=== PATIENT | male | born 1985 | race Caucasian/White ===

== ENCOUNTER 2017-09-04 12:33 | Emergency (ER) | payer BC ==
--- NOTE | 2017-09-04 13:18 | EDM.PDOC ---
ED HPI GENERAL MEDICAL PROBLEM - General Chief Complaint: Laceration Stated Complaint: head laceration Time Seen by Provider: 09/04/17 12:44 Source of Information: Reports: Patient History Limitations: Reports: No Limitations - History of Present Illness INITIAL COMMENTS - FREE TEXT/NARRATIVE: bumped top of head on piece of equipment and sustained scalp laceration. No LOC. No other complaints. Tetanus UTD. No headache/vision change/nausea or other complaints suggestive of concussion. 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: Other (see below) Other Treatments ROLL OVER LOADER: paper towel to head - Related Data Allergies Allergy/AdvReac Type Severity Reaction Status Date / Time NKA Allergy none Uncoded 09/04/17 12:35 Past Medical History Hematologic History: Reports: None - Past Surgical History Musculoskeletal Surgical History: Reports: Other (See Below) Other Musculoskeletal Surgeries/Procedures:: right ankle surgery 2005 Social & Family History - Tobacco Use Smoking Status *Q: Former Smoker Used Tobacco, but Quit: Yes Month/Year Tobacco Last Used: 5 - Caffeine Use Caffeine Use: Reports: Coffee Caffeine Use Comment: daily - Recreational Drug Use Recreational Drug Use: No ED ROS GENERAL - Review of Systems Review Of Systems: ROS reveals no pertinent complaints other than HPI. ED EXAM, SKIN/RASH Exam: See Below Exam Limited By: No Limitations General Appearance: Alert, WD/WN, No Apparent Distress Eye Exam: Bilateral Eye: EOMI, PERRL Ears: Normal External Exam Nose: Normal Inspection Throat/Mouth: Normal Inspection, Normal Voice, No Airway Compromise Head: No: Facial Swelling, Facial Tenderness Neck: Supple, Non-Tender Respiratory/Chest: No Respiratory Distress Neurological: Alert, Oriented, CN II-XII Intact, Normal Cognition, Normal Gait, No Motor/Sensory Deficits Psychiatric: Normal Affect, Normal Mood Skin: Other (3.5cm head laceration scalp to right of midline on top of head) ED SKIN PROCEDURES - Laceration/Wound Repair Right [place] Head Lac/Wound length In cm: 3.5 Appearance: Subcutaneous, Linear, Clean Skin Prep: Saline Exploration/Debridement/Repair: Wound Explored, In a Bloodless Field, Explored to Base Closed with: Jackie # of Sutures: 3 Drain Placement: No Sterile Dressing Applied: Nurse Tetanus Status Addressed: Yes Complications: No Course - Vital Signs Last Recorded V/S: Last Vital Signs Temp 36.6 C 09/04/17 12:35 Pulse 68 09/04/17 12:35 Resp 16 09/04/17 12:35 BP 143/82 H 09/04/17 12:35 Pulse Ox 100 09/04/17 12:35 - Re-Assessments/Exams Free Text/Narrative Re-Assessment/Exam: 09/04/17 14:13 Laceration repaired. Precautions reviewed. Jackie out in one week. Follow up otherwise as needed. Departure - Departure Time of Disposition: 13:17 Disposition: Home, Self-Care 01 Condition: Good Clinical Impression: Laceration of scalp Qualifiers: Encounter type: initial encounter Qualified Code(s): S01.01XA - Laceration without foreign body of scalp, initial encounter - Discharge Information Instructions: Stitches, Jackie, or Adhesive Wound Closure, [id number] Forms: ED Department Discharge Additional Instructions: Follow up as needed. OK to apply topical antibiotic ointment several times a day. Tylenol or Aleve or Ibuprofen as needed for discomfort. [place]er out in one week.
== END 2017-09-04 13:50 | disposition home or self-care (01) ==
LOC: LL.ED 12:33
DX: S01.01XA Laceration without foreign body of scalp, initial encounter (principal); Z87.891 Personal history of nicotine dependence; W22.8XXA Striking against or struck by other objects, initial encounter
CPT/HCPCS: 12002; 99282

== ENCOUNTER 2020-12-07 07:58 | Emergency (ER) | payer SELFPAY ==
[2020-12-07] MEDS ORDERED: Bacitracin Oint 1 GM U/D Packet TOP ONE (08:56)
--- NOTE | 2020-12-07 08:58 | EDM.PDOC ---
ED HPI GENERAL MEDICAL PROBLEM - General Chief Complaint: Laceration Stated Complaint: left thumb laceration Time Seen by Provider: 12/07/20 08:55 Source of Information: Reports: Patient History Limitations: Reports: No Limitations - History of Present Illness INITIAL COMMENTS - FREE TEXT/NARRATIVE: Laceration left thumb from cutting bridges peppers last evening. Tried to tape it up/clean up himself but still some bleeding this morning. No other injuries/complaints. 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) - Related Data Allergies Allergy/AdvReac Type Severity Reaction Status Date / Time NKA Allergy none Uncoded 12/07/20 07:59 Past Medical History Hematologic History: Reports: None - Past Surgical History Musculoskeletal Surgical History: Reports: Other (See Below) Other Musculoskeletal Surgeries/Procedures:: right ankle surgery 2005 Social & Family History - Tobacco Use Tobacco Use Status *Q: Never Tobacco User Second Hand Smoke Exposure: No - Caffeine Use Caffeine Use: Reports: Coffee Caffeine Use Comment: daily ED ROS GENERAL - Review of Systems Review Of Systems: See Below Musculoskeletal: Denies: Joint Pain, Joint Swelling Skin: Reports: Wound Neurological: Reports: No Symptoms ED EXAM, SKIN/RASH Exam: See Below Exam Limited By: No Limitations General Appearance: Alert, WD/WN, No Apparent Distress Eye Exam: Bilateral Eye: EOMI, PERRL Ears: Hearing Grossly Normal Throat/Mouth: Normal Voice, No Airway Compromise Head: Atraumatic, Normocephalic Neck: Supple Respiratory/Chest: No Respiratory Distress Extremities: Normal Range of Motion, Normal Capillary Refill Neurological: Alert, Oriented, No Motor/Sensory Deficits Psychiatric: Normal Affect, Normal Mood Skin: Warm, Other (laceration distal left thumb. Nail intact. No active bleeding) ED SKIN PROCEDURES - Laceration/Wound Repair Left Distal Ventral Digit - 1st (Thumb) Appearance: Subcutaneous, Linear, Clean Distal NVT: Neuro & Vascular Intact, No Tendon Injury Anesthetic Type: Local Local Anesthesia - Lidocaine (Xylocaine): 1% Plain Local Anesthetic Volume: 2cc Skin Prep: Providone-Iodine (Betadine) Exploration/Debridement/Repair: Wound Explored, In a Bloodless Field, Explored to Base, No Foreign Material Found Closed with: Sutures Lac/Wound length In cm: 1.5 Suture Size: 4-0 # of Sutures: 4 Suture Type: Nylon, Interrupted Sterile Dressing Applied: Nurse Tetanus Status Addressed: Yes Complications: No Course - Vital Signs Last Recorded V/S: Last Vital Signs Temp 36.7 C 12/07/20 08:03 Pulse 72 12/07/20 08:03 Resp 16 12/07/20 08:03 BP 141/90 H 12/07/20 08:03 Pulse Ox 100 12/07/20 08:03 - Orders/Labs/Meds Meds: Medications Discontinued Medications Generic Name Dose Route Start Last Admin Trade Name Tom PRN Reason Stop Dose Admin Bacitracin 1 dose 12/07/20 08:56 Bacitracin Oint 1 Gm U/D Packet TOP 12/07/20 08:57 ONETIME ONE Lidocaine HCl 5 ml 12/07/20 08:38 12/07/20 08:45 Lidocaine 1% 5 Ml Sdv INJECT 12/07/20 08:39 5 ml ONETIME ONE Administration - Re-Assessments/Exams Free Text/Narrative Re-Assessment/Exam: 12/07/20 09:01 Laceration repaired. Wound care reviewed. Patient's last tetanus 2011. He declined update today. He was made aware that he is due for update next year. Follow up as needed. Departure - Departure Time of Disposition: 08:56 Disposition: Home, Self-Care 01 Condition: Good Clinical Impression: Laceration of left thumb Qualifiers: Encounter type: initial encounter Damage to nail status: without damage Foreign body presence: without foreign body Qualified Code(s): S61.012A - Laceration without foreign body of left thumb without damage to nail, initial encounter - Discharge Information *PRESCRIPTION DRUG MONITORING PROGRAM REVIEWED*: Not Applicable *COPY OF PRESCRIPTION DRUG MONITORING REPORT IN PATIENT MELCHOR: Not Applicable Instructions: Laceration Care, Adult, [id number] Forms: ED Department Discharge Additional Instructions: Sutures out WednesdayDec 16. Follow up for recheck if any signs of infection develop such as increased redness/swelling/pain. Sepsis Event Note (ED) - Evaluation Sepsis Screening Result: No Definite Risk - Focused Exam Vital Signs: Vital Signs Temp Pulse Resp BP Pulse Ox 12/07/20 08:03 36.7 C 72 16 141/90 H 100
== END 2020-12-07 09:05 | disposition home or self-care (01) ==
LOC: LL.ED 07:58
DX: S61.012A Laceration without foreign body of left thumb without damage to nail, initial encounter (principal); Z88.8 Allergy status to other drugs, medicaments and biological substances; W26.0XXA Contact with knife, initial encounter
CPT/HCPCS: 12001; 99282-25